=== PATIENT | male | born 1970 | race Caucasian/White ===

== ENCOUNTER 2020-03-08 04:06 | Observation (INO) | payer OTHER ==
--- NOTE | 2020-03-08 05:04 | XR ---
EXAMINATION TYPE: XR finger LT DATE OF EXAM: 03/08/2020 COMPARISON: NONE HISTORY: Swelling TECHNIQUE: 3 views FINDINGS: There is soft tissue swelling around the middle finger. I see no fracture nor dislocation. There is 1 mm bony density that could relate to some arthritic change at the PIP joint. IMPRESSION: Soft tissue swelling. No evidence of radiopaque foreign body.
--- NOTE | 2020-03-08 05:07 | ED ---
General Adult HPI - General Chief complaint: Skin/Abscess/Foreign Body Stated complaint: Finger Infection Time Seen by Provider: 03/08/20 04:44 Source: patient Mode of arrival: ambulatory Limitations: no limitations - History of Present Illness Initial comments: Anthony is a generally healthy 49-year-old male who presents the ER today for evaluation of left middle finger injury and infection. Patient reports that sometime last week and probably around the he smashed the finger. He states it was doing well for a while after that on Saturday the it became swollen and he noted some purulent discharge. Patient reports that over the past 4 days is progressively worsen with worsening swelling radiating all the way down the fingernail spreading to neighboring fingers and pain which limits his ability to move the finger at all. He states he hasn't been able to sleep for 2 days secondary to the pain. He denies any fevers chills nausea or vo miting. He is nondiabetic. He is a cigarette smoker. - Related Data Allergies Allergy/AdvReac Type Severity Reaction Status Date / Time No Known Allergies Allergy Verified 03/08/20 04:14 Review of Systems ROS Statement: Those systems with pertinent positive or pertinent negative responses have been documented in the HPI. ROS Other: All systems not noted in ROS Statement are negative. Past Medical History Past Medical History: No Reported History History of Any Multi-Drug Resistant Organisms: None Reported Past Surgical History: No Surgical Hx Reported Past Psychological History: No Psychological Hx Reported Smoking Status: Current every day smoker Past Alcohol Use History: None Reported Past Drug Use History: None Reported General Exam - General Exam Comments Initial Comments: Physical Exam GENERAL: Patient is well-developed and well-nourished. Patient is nontoxic and well-hydrated and is in no distress. HENT: Normocephalic, Atraumatic. EYES: PERRL, EOMI PULMONARY: Unlabored respirations. CARDIOVASCULAR: RRR Warm and well perfused extremities ABDOMEN: Non-distended SKIN: Open wound to pad of left middle finger, no drainage : Deferred NEUROLOGIC: Alert and oriented Normal speech Normal gait MUSCULOSKELETAL: Decreased ROM of left middle finger secondary to swelling, fluctuance noted on the flexor surface from the DIP to the PIP, significant edema of the finger PSYCHIATRIC: No SI/HI Limitations: no limitations Course Vital Signs 03/08/20 04:12 Temperature 97 F L Pulse Rate 65 Respiratory 18 Rate Blood Pressure 143/78 O2 Sat by Pulse 100 Oximetry Medical Decision Making - Medical Decision Making The patient was seen and evaluated, history was obtained from the patient Given the patient's signs of infection a septic workup was initiated Concern for finger abscess therefore vancomycin and Rocephin were ordered Labs with leukocytosis no other significant abnormalities noted X-ray with no signs of underlying fracture free air or foreign body Patient care was discussed with Dr. Louis who accepts admission for possible wash out - Lab Data Result diagrams: 03/08/20 05:37 03/08/20 05:37 Lab Results 03/08/20 03/08/20 03/08/20 Range/Units 05:37 05:37 05:37 WBC 11.3 H (3.8-10.6) k/uL RBC 4.57 (4.30-5.90) m/uL Hgb 13.3 (13.0-17.5) gm/dL Hct 41.8 (39.0-53.0) % MCV 91.4 (80.0-100.0) fL MCH 29.2 (25.0-35.0) pg MCHC 31.9 (31.0-37.0) g/dL RDW 13.5 (11.5-15.5) % Plt Count 293 (150-450) k/uL Neutrophils % 74 % Lymphocytes % 14 % Monocytes % 5 % Eosinophils % 6 % Basophils % 1 % Neutrophils # 8.4 H (1.3-7.7) k/uL Lymphocytes # 1.6 (1.0-4.8) k/uL Monocytes # 0.5 (0-1.0) k/uL Eosinophils # 0.7 (0-0.7) k/uL Basophils # 0.1 (0-0.2) k/uL Sodium 134 L (137-145) mmol/L Potassium 4.2 (3.5-5.1) mmol/L Chloride 101 (98-107) mmol/L Carbon Dioxide 27 (22-30) mmol/L Anion Gap 6 mmol/L BUN 13 (9-20) mg/dL Creatinine 0.93 (0.66-1.25) mg/dL Est GFR (CKD-EPI)AfAm >90 (>60 ml/min/1.73 sqM) Est GFR (CKD-EPI)NonAf >90 (>60 ml/min/1.73 sqM) Glucose 124 H (74-99) mg/dL Plasma Lactic Acid Virgil 0.7 (0.7-2.0) mmol/L Calcium 9.2 (8.4-10.2) mg/dL Total Bilirubin 0.3 (0.2-1.3) mg/dL AST 22 (17-59) U/L ALT 16 (4-49) U/L Alkaline Phosphatase 97 (38-126) U/L Total Protein 6.5 (6.3-8.2) g/dL Albumin 4.1 (3.5-5.0) g/dL Disposition Clinical Impression: Abscess of finger of left hand Disposition: ADMITTED IP TO THIS HOSP Condition: Stable Is patient prescribed a controlled substance at d/c from ED?: No Referrals: None,Stated [Primary Care Provider] - 1-2 days
[2020-03-08] MEDS ORDERED: VANCOMYCIN IV PER PHARMACY 1 EACH MISC MISCELLANE PRN (05:14)
[2020-03-08] MEDS ORDERED: HYDROmorphone 1 MG/ML 1 ML SYRINGE IVP STA ×2 (05:15→06:47)
[2020-03-08] MEDS ORDERED: VANCOMYCIN 1,500 MG in SODIUM CHLORIDE 0.9% 250 ML IVPB STA (05:17)
[2020-03-08 05:47] LABS: Basophils # (A) 0.1 k/uL (0-0.2); Basophils % (A) 1 %; Eosinophils # (A) 0.7 k/uL (0-0.7); Eosinophils % (A) 6 %; HCT 41.8 % (39.0-53.0); HGB 13.3 gm/dL (13.0-17.5); Lymphocytes # (A) 1.6 k/uL (1.0-4.8); Lymphocytes % (A) 14 %; MCH 29.2 pg (25.0-35.0); MCHC 31.9 g/dL (31.0-37.0); MCV 91.4 fL (80.0-100.0); Mean Platelet Volume 7.2; Monocytes # (A) 0.5 k/uL (0-1.0); Monocytes % (A) 5 %; Neutrophils # (A) 8.4 k/uL (1.3-7.7); Neutrophils % (A) 74 %; Platelet Count 293 k/uL (150-450); RBC 4.57 m/uL (4.30-5.90); RDW 13.5 % (11.5-15.5); WBC 11.3 k/uL (3.8-10.6)
[2020-03-08 05:56] LABS: ALT 16 U/L (4-49); AST 22 U/L (17-59); African American GFR (CKD) >90 (>60 ml/min/1.73 sqM); Albumin 4.1 g/dL (3.5-5.0); Alkaline Phosphatase 97 U/L (38-126); Anion Gap 6 mmol/L; Blood Urea Nitrogen 13 mg/dL (9-20); Calcium 9.2 mg/dL (8.4-10.2); Carbon Dioxide 27 mmol/L (22-30); Chloride 101 mmol/L (98-107); Glucose 124 mg/dL (74-99); Non-African American GFR(CKD) >90 (>60 ml/min/1.73 sqM); Potassium 4.2 mmol/L (3.5-5.1); Sodium 134 mmol/L (137-145); Total Bilirubin 0.3 mg/dL (0.2-1.3); Total Protein 6.5 g/dL (6.3-8.2)
[2020-03-08] MEDS: SODIUM CHLORIDE 0.9% 1,000 ML IV SCH ×3 (05:56→19:18)
[2020-03-08] MEDS: SODIUM CHLORIDE 0.9% 500 ML 500 ML IV SCH ×2 (05:56→06:45)
[2020-03-08 06:13] LABS: INR 0.9 (<1.2); Partial Thromboplastin Time 25.7 sec (22.0-30.0); Prothrombin Time 9.6 sec (9.0-12.0)
[2020-03-08] MEDS ORDERED: NALOXONE 0.4 MG/ML 1 ML VIAL IV PRN (07:18)
[2020-03-08] MEDS: NICOTINE 14MG/24HR PATCH TRANSDERM SCH (08:11)
[2020-03-08] MEDS: HYDROmorphone 1 MG/ML 1 ML SYRINGE IVP PRN ×2 (09:01→11:51)
--- NOTE | 2020-03-08 11:41 | P.HPOR ---
History of Present Illness H&P Date: 03/08/20 This patient is a 49-year-old male with a current every day cigarette smoker that presented to [facility] emergency department last night with complaints of left middle finger pain and swelling. The patient states last weekend, sometime around 02/28/20, he placed a screw into the left middle finger by mistake. He states he removed the screw from his finger at home, and irrigated the wound at home. He states he was not evaluated for his injury. He has not been on oral antibiotics. He states within the past few days, the left middle finger began swelling. He also noticed erythema and drainage from the wound. He states the pain increased over the past 2 days, therefore he presented to the emergency department for evaluation. Patient was placed on Rocephin and Vancomycin. At the time exam, patient states he feels well. He denies chest pain, shortness breath, nausea, vomiting, fevers, chills, feelings of generalized malaise. He is tolerating his diet well. He has no additional complaints today. Vital signs stable. Past Medical History Past Medical History: No Reported History History of Any Multi-Drug Resistant Organisms: None Reported Past Surgical History: No Surgical Hx Reported Past Psychological History: No Psychological Hx Reported Smoking Status: Current every day smoker Past Alcohol Use History: None Reported Past Drug Use History: None Reported Medications and Allergies Home Medications Medication Instructions Recorded Confirmed Type No Known Home Medications 03/08/20 03/08/20 History Allergies Allergy/AdvReac Type Severity Reaction Status Date / Time No Known Allergies Allergy Verified 03/08/20 06:39 Physical Examination On examination, the patient is sitting up in bed in no apparent distress. He is alert and oriented 3. A focused examination of the left hand was conducted. On inspection of the left middle finger, there is diffuse swelling and erythema of the finger. There is a small wound at the distal aspect of the volar left middle finger. There is no active drainage at this time. There is diffuse tenderness on palpation of the distal finger. There is no pain with passive range of motion of the finger. Patient is able to actively, fully extend and flex the finger without issue or significant pain. The left middle finger is warm and well-perfused with brisk capillary refill. Sensation is intact to light touch of both sides of the finger. Results Left hand x-ray 03/08/2020: No acute fractures. No obvious foreign bodies. - Labs Labs: Abnormal Lab Results - Last 24 Hours (Table) 03/08/20 03/08/20 Range/Units 05:37 05:37 WBC 11.3 H (3.8-10.6) k/uL Neutrophils # 8.4 H (1.3-7.7) k/uL Sodium 134 L (137-145) mmol/L Glucose 124 H (74-99) mg/dL H & H 03/08/20 Range/Units 05:37 Hgb 13.3 (13.0-17.5) gm/dL Hct 41.8 (39.0-53.0) % Coagulation 03/08/20 Range/Units 05:37 INR 0.9 (<1.2) Result Diagrams: 03/08/20 05:37 03/08/20 05:37 Assessment and Plan Assessment: Left middle finger infection Plan: Clinical and imaging findings were discussed with the patient. The patient was discussed with Dr. Santos Louis. No plans for surgical intervention today. We will monitor patient's clinical response to IV antibiotics. Also recommended warm water soaks of the left middle finger TID. He may perform gentle, active ROM of the finger as tolerated. We will re-assess patient in the morning tomorrow. Patient will be made NPO at midnight. Patient discussed with Dr. Louis.
[2020-03-08] MEDS: VANCOMYCIN 1,500 MG in SODIUM CHLORIDE 0.9% 250 ML IVPB SCH ×2 (13:22→22:01)
--- NOTE | 2020-03-08 16:33 | P.HPIM ---
History of Present Illness H&P Date: 03/08/20 Chief Complaint: Finger pain and swelling This is a 49-year-old male with no significant past medical history who presented to the ER with worsening swelling and pain of the left middle finger. Patient said last week he had a screw into the left middle finger by mistake rigo t he removed at home and irrigated the wound. Since then his finger is being going progressively worse. He did not seek medical attention at that time. He did not take any antibiotic. Patient said that there was some drainage out of the wound and currently so swollen and painful. He was evaluated in the ER and was given IV vancomycin and ceftriaxone. He was admitted under orthopedic for possible I&D. I was asked to see him for medical management. Patient denies any other medical history. No history of diabetes. Review of Systems Review of system: 14 points review of systems were obtained and were negative except to what were mentioned in the HPI. Past Medical History Past Medical History: No Reported History History of Any Multi-Drug Resistant Organisms: None Reported Past Surgical History: No Surgical Hx Reported Past Psychological History: No Psychological Hx Reported Smoking Status: Current every day smoker Past Alcohol Use History: None Reported Past Drug Use History: None Reported Medications and Allergies Home Medications Medication Instructions Recorded Confirmed Type No Known Home Medications 03/08/20 03/08/20 History Allergies Allergy/AdvReac Type Severity Reaction Status Date / Time No Known Allergies Allergy Verified 03/08/20 06:39 Physical Exam Vitals: Vital Signs Temp Pulse Pulse Resp BP BP Pulse Ox 03/08/20 13:25 98.4 F 64 14 163/93 98 03/08/20 07:42 98.6 F 65 16 160/84 100 03/08/20 07:38 98.9 F 70 16 169/94 95 03/08/20 07:08 60 19 146/94 100 03/08/20 06:10 62 18 147/95 100 03/08/20 05:15 64 19 163/98 100 03/08/20 04:12 97 F L 65 18 143/78 100 Intake and Output 03/08/20 03/08/20 03/08/20 06:59 14:59 22:59 Other: Voiding Method Toilet # Voids 2 Weight 81.647 kg 81.647 kg General: The patient is awake and alert, in no distress Eye: there is normal conjunctiva bilaterally. Neck: The neck is supple, there is no JVD. Cardiovascular: Normal S1-S2, no S3-S4, no murmurs. Respiratory: Lungs clear to auscultation bilaterally Gastrointestinal: Abdomen is soft, nontender Musculoskeletal: There is no pedal edema. Left middle finger is significantly swollen and tender. There is limitation Range of motion of the DIP and PIP secondary to swelling and pain. Neurological:. Speech is normal. Skin: Skin is warm and dry Results CBC & Chem 7: 03/08/20 05:37 03/08/20 05:37 Labs: Abnormal Lab Results - Last 24 Hours (Table) 03/08/20 03/08/20 Range/Units 05:37 05:37 WBC 11.3 H (3.8-10.6) k/uL Neutrophils # 8.4 H (1.3-7.7) k/uL Sodium 134 L (137-145) mmol/L Glucose 124 H (74-99) mg/dL Thrombosis Risk Factor Assmnt - Choose All That Apply Each Factor Represents 1 point: Age 41-60 years Thrombosis Risk Factor Assessment Total Risk Factor Score: 1 Thrombosis Risk Factor Assessment Level: Low Risk Assessment and Plan Assessment: 1. Left middle finger swelling and cellulitis with possible small abscess formation, seen and evaluated by orthopedic. Currently on IV vancomycin. We'll follow clinical course. Consider I&D in the morning. Patient is up-to-date on his tetanus vaccine. 2. Tobacco abuse: Counseled extensively to quit. Patient declines nicotine patch at this time. 3. Leukocytosis, mild, secondary to underlying infection. Repeat CBC in the morning.
[2020-03-08] MEDS ORDERED: VANCOMYCIN 1,500 MG in SODIUM CHLORIDE 0.9% 250 ML IVPB SCH (18:00)
[2020-03-09] MEDS: ACETAMINOPHEN TAB 325 MG TAB PO PRN ×3 (03:00→19:54)
[2020-03-09] MEDS ORDERED: VANCOMYCIN TROUGH DUE 1 EACH MISC MISCELLANE ONE (05:00)
[2020-03-09 05:26] LABS: Basophils % (A) 0 %; Eosinophils # (A) 0.3 k/uL (0-0.7); Eosinophils % (A) 4 %; HCT 41.5 % (39.0-53.0); Lymphocytes # (A) 1.3 k/uL (1.0-4.8); Lymphocytes % (A) 19 %; MCH 28.7 pg (25.0-35.0); MCHC 31.3 g/dL (31.0-37.0); MCV 91.8 fL (80.0-100.0); Mean Platelet Volume 7.1; Monocytes # (A) 0.4 k/uL (0-1.0); Monocytes % (A) 5 %; Neutrophils # (A) 5.1 k/uL (1.3-7.7); Neutrophils % (A) 71 %; Platelet Count 257 k/uL (150-450); RBC 4.52 m/uL (4.30-5.90); RDW 13.8 % (11.5-15.5); WBC 7.2 k/uL (3.8-10.6)
[2020-03-09 05:36] LABS: African American GFR (CKD) >90 (>60 ml/min/1.73 sqM); Anion Gap 5 mmol/L; Blood Urea Nitrogen 11 mg/dL (9-20); Carbon Dioxide 25 mmol/L (22-30); Chloride 104 mmol/L (98-107); Glucose 102 mg/dL (74-99); Non-African American GFR(CKD) >90 (>60 ml/min/1.73 sqM); Potassium 4.1 mmol/L (3.5-5.1); Sodium 134 mmol/L (137-145)
[2020-03-09] MEDS: VANCOMYCIN 1,500 MG in SODIUM CHLORIDE 0.9% 250 ML IVPB SCH ×3 (05:41→21:20)
[2020-03-09] MEDS: SODIUM CHLORIDE 0.9% 1,000 ML IV SCH (05:42)
[2020-03-09] MEDS ORDERED: LIDOCAINE 2% INJ 20 MG/ML (20 ML MDV) SQ STA (08:27)
[2020-03-09] MEDS: NICOTINE 14MG/24HR PATCH TRANSDERM SCH (09:25)
--- NOTE | 2020-03-09 10:01 | P.PN ---
Subjective Progress Note Date: 03/09/20 Principal diagnosis: Left middle finger cellulitis Patient is feeling about the same compared to yesterday. Finger swelling has not improved. Objective - Vital Signs Vital signs: Vital Signs Temp 97.8 F 03/09/20 09:00 Pulse 55 L 03/09/20 09:00 Resp 16 03/09/20 09:00 BP 130/80 03/09/20 09:00 Pulse Ox 96 03/09/20 09:00 Intake & Output 03/08/20 03/09/20 03/09/20 18:59 06:59 18:59 Intake Total 236 250 Balance 236 250 Weight 81.647 kg Intake: Intake, IV Titration 250 Amount Vancomycin 1,500 mg In 250 Sodium Chloride 0.9% 250 ml @ 125 mls/hr IVPB Q8H [facility] Rx#:[id number] Oral 236 Other: Voiding Method Toilet Toilet # Voids 2 - Exam General: The patient is awake and alert, in no distress Eye: there is normal conjunctiva bilaterally. Neck: The neck is supple, there is no JVD. Cardiovascular: Normal S1-S2, no S3-S4, no murmurs. Respiratory: Lungs clear to auscultation bilaterally Gastrointestinal: Abdomen is soft, nontender Musculoskeletal: There is no pedal edema. Left middle finger is still swollen and tender with no significant improvement since yesterday Neurological:. Speech is normal. Skin: Skin is warm and dry - Labs CBC & Chem 7: 03/09/20 05:06 03/09/20 05:06 Labs: Abnormal Lab Results - Last 24 Hours (Table) 03/09/20 Range/Units 05:06 Sodium 134 L (137-145) mmol/L Glucose 102 H (74-99) mg/dL Microbiology - Last 24 Hours (Table) 03/08/20 05:37 Blood Culture - Preliminary Blood No Growth after 24 hours Assessment and Plan Assessment: 1. Left middle finger swelling and cellulitis with possible small abscess formation, seen and evaluated by orthopedic. Plan for bedside I&D this morning. Currently on IV vancomycin. We'll follow clinical course. Patient is up-to-date on his tetanus vaccine. 2. Tobacco abuse: Counseled extensively to quit. Patient declines nicotine patch at this time. 3. Leukocytosis, mild, secondary to underlying infection. Resolved Continue IV antibiotic for another day. We will continue to follow clinical course. Anticipate discharge home tomorrow.
[2020-03-09] MEDS ORDERED: HYDROcodone/APAP 7.5-325MG 1 EACH TAB PO PRN (10:53)
[2020-03-09] MEDS ORDERED: IBUPROFEN 800 MG TAB PO PRN (10:53)
--- NOTE | 2020-03-09 10:53 | P.PN ---
Subjective Progress Note Date: 03/09/20 This is a 49-year-old male who is admitted for a left middle finger infection. Patient is seen and evaluated at bedside with Dr. Santos Louis. Patient states that his swelling has gone down a little bit, but there is still pain in the left middle finger today. Patient denies any new complaints today. Objective - Vital Signs Vital signs: Vital Signs Temp 97.8 F 03/09/20 09:00 Pulse 55 L 03/09/20 09:00 Resp 16 03/09/20 09:00 BP 130/80 03/09/20 09:00 Pulse Ox 96 03/09/20 09:00 Intake & Output 03/08/20 03/09/20 03/09/20 18:59 06:59 18:59 Intake Total 236 250 Balance 236 250 Weight 81.647 kg Intake: Intake, IV Titration 250 Amount Vancomycin 1,500 mg In 250 Sodium Chloride 0.9% 250 ml @ 125 mls/hr IVPB Q8H [facility] Rx#:[id number] Oral 236 Other: Voiding Method Toilet Toilet # Voids 2 - Exam On exam there is swelling and erythema to the left middle finger. There is an abscess to the distal palmar aspect of the left middle finger. There is no active drainage. There is tenderness to palpation of the left middle finger. The left upper extremity is warm and well perfused. - Labs CBC & Chem 7: 03/09/20 05:06 03/09/20 05:06 Labs: Abnormal Lab Results - Last 24 Hours (Table) 03/09/20 Range/Units 05:06 Sodium 134 L (137-145) mmol/L Glucose 102 H (74-99) mg/dL Microbiology - Last 24 Hours (Table) 03/08/20 05:37 Blood Culture - Preliminary Blood No Growth after 24 hours Assessment and Plan (1) Abscess of finger of left hand Current Visit: Yes Status: Acute Code(s): L02.512 - CUTANEOUS ABSCESS OF LEFT HAND SNOMED Code(s): 51090701113151283 Plan: Procedure: Bedside Incision and drainage The skin overlying the abscess was prepped with Betadine, and a digital block is performed with 2% lidocaine without epinephrine. A #11 scalpel was then used to incise the abscess. Some purulent material was then extracted from the lesion. Wound culture obtained. Gauze dressing placed on top, The patient tolerated the procedure well. Recommend continuation of IV antibiotics and warm compresses. Appreciate input from medicine. Will continue to follow the patient closely.
[2020-03-09] MEDS: HYDROmorphone 1 MG/ML 1 ML SYRINGE IVP PRN (11:08)
[2020-03-09] MEDS: HYDROcodone/APAP 7.5-325MG 1 EACH TAB PO PRN (17:07)
[2020-03-10] MEDS: HYDROmorphone 1 MG/ML 1 ML SYRINGE IVP PRN (02:55)
[2020-03-10] MEDS: VANCOMYCIN 1,500 MG in SODIUM CHLORIDE 0.9% 250 ML IVPB SCH (05:56)
[2020-03-10 07:13] LABS: Basophils # (A) 0.1 k/uL (0-0.2); Basophils % (A) 1 %; Eosinophils # (A) 0.4 k/uL (0-0.7); Eosinophils % (A) 5 %; HCT 40.9 % (39.0-53.0); HGB 12.9 gm/dL (13.0-17.5); Lymphocytes # (A) 1.6 k/uL (1.0-4.8); Lymphocytes % (A) 23 %; MCH 28.9 pg (25.0-35.0); MCHC 31.6 g/dL (31.0-37.0); MCV 91.4 fL (80.0-100.0); Mean Platelet Volume 7.2; Monocytes # (A) 0.4 k/uL (0-1.0); Monocytes % (A) 5 %; Neutrophils # (A) 4.7 k/uL (1.3-7.7); Neutrophils % (A) 65 %; Platelet Count 260 k/uL (150-450); RBC 4.47 m/uL (4.30-5.90); RDW 13.7 % (11.5-15.5); WBC 7.2 k/uL (3.8-10.6)
[2020-03-10 07:26] LABS: African American GFR (CKD) >90 (>60 ml/min/1.73 sqM); Anion Gap 5 mmol/L; Blood Urea Nitrogen 12 mg/dL (9-20); Calcium 8.6 mg/dL (8.4-10.2); Carbon Dioxide 26 mmol/L (22-30); Chloride 103 mmol/L (98-107); Glucose 98 mg/dL (74-99); Non-African American GFR(CKD) >90 (>60 ml/min/1.73 sqM); Potassium 4.2 mmol/L (3.5-5.1); Sodium 134 mmol/L (137-145)
[2020-03-10] MEDS: HYDROcodone/APAP 7.5-325MG 1 EACH TAB PO PRN (08:10)
[2020-03-10 09:34] VITALS: BP 148/79; PULSE 65; RESP 18; TEMP 98.7
[2020-03-10] MEDS: NICOTINE 14MG/24HR PATCH TRANSDERM SCH (10:17)
--- NOTE | 2020-03-10 10:50 | P.PN ---
Subjective Progress Note Date: 03/10/20 Principal diagnosis: Left middle finger cellulitis Patient is doing well today. Pain has improved. Left middle finger is wrapped in clean/dry dressing. Objective - Vital Signs Vital signs: Vital Signs Temp 98.7 F 03/10/20 09:00 Pulse 65 03/10/20 09:00 Resp 18 03/10/20 09:00 BP 148/79 03/10/20 09:00 Pulse Ox 96 03/10/20 09:00 Intake & Output 03/09/20 03/10/20 03/10/20 18:59 06:59 18:59 Intake Total 236 250 360 Balance 236 250 360 Intake: Intake, IV Titration 250 Amount Vancomycin 1,500 mg In 250 Sodium Chloride 0.9% 250 ml @ 125 mls/hr IVPB Q8H [facility] Rx#:[id number] Oral 236 360 Other: Voiding Method Toilet # Voids 1 2 - Exam General: The patient is awake and alert, in no distress Eye: there is normal conjunctiva bilaterally. Neck: The neck is supple, there is no JVD. Cardiovascular: Normal S1-S2, no S3-S4, no murmurs. Respiratory: Lungs clear to auscultation bilaterally Gastrointestinal: Abdomen is soft, nontender Musculoskeletal: There is no pedal edema. Neurological:. Speech is normal. Skin: Skin is warm and dry - Labs CBC & Chem 7: 03/10/20 07:04 03/10/20 07:04 Labs: Abnormal Lab Results - Last 24 Hours (Table) 03/10/20 03/10/20 Range/Units 07:04 07:04 Hgb 12.9 L (13.0-17.5) gm/dL Sodium 134 L (137-145) mmol/L Microbiology - Last 24 Hours (Table) 03/09/20 10:10 Gram Stain - Preliminary Finger - Left Third Wound Culture - Preliminary Presumptive MRSA 03/08/20 05:37 Blood Culture - Preliminary Blood No Growth after 48 hours 03/09/20 10:10 Anaerobic Culture - Preliminary Finger - Left Third Assessment and Plan Assessment: 1. Left middle finger swelling and cellulitis with possible small abscess formation, seen and evaluated by orthopedic. Status post bedside I&D. Started on IV antibiotic with IV vancomycin and would finish antibiotic course with Bactrim as prescribed by orthopedic Patient is up-to-date on his tetanus vaccine. 2. Tobacco abuse: Counseled extensively to quit. Patient declines nicotine pa tch at this time. 3. Leukocytosis, mild, secondary to underlying infection. Resolved patient is medically cleared for discharge. follow-up as directed
--- NOTE | 2020-03-10 10:51 | P.DS ---
Providers Date of admission: 03/08/20 07:18 Expected date of discharge: 03/10/20 Attending physician: Santos Louis Consults: 03/08/20 15:16 Consult Physician Routine Consulting Provider: Arabella Hawthorne Consult Reason/Comments: medical management Do you want consulting provider notified?: Yes Primary care physician: Stated None - Discharge Diagnosis(es) (1) Abscess of finger of left hand Current Visit: Yes Status: Acute Hospital Course: This is a 49 year-old male who is admitted for left middle finger infection. Patient has been on IV antibiotics and underwent bedside incision and drainage on 03/09/2020. Patient's symptoms are improving. Labs and vital signs are stable on day of discharge. Cultures show presumptive MRSA. On exam the left middle finger is swollen. Mild drainage present. Mild erythema. There is no tenderness to palpation over the left hand. Sensation intact. Capillary refill is normal at <2 seconds. Neurovascular status and circulatory status are intact. Patient is in good condition for discharge home. Patient Condition at Discharge: Stable Plan - Discharge Summary New Discharge Prescriptions: New HYDROcodone/APAP 7.5-325MG [[place] 7.5-325] 1 - 2 tab PO Q6H PRN #32 tab PRN Reason: Pain Sennosides [Senokot] 2 tab PO DAILY PRN #60 tablet PRN Reason: Constipation Sulfamethox-Tmp 800-160Mg [Bactrim DS 800-160 mg] 1 tab PO Q12HR #20 tab Discharge Medication List HYDROcodone/APAP 7.5-325MG [[place] 7.5-325] 1 - 2 tab PO Q6H PRN #32 tab 03/10/20 [Rx] Sennosides [Senokot] 2 tab PO DAILY PRN #60 tablet 03/10/20 [Rx] Sulfamethox-Tmp 800-160Mg [Bactrim DS 800-160 mg] 1 tab PO Q12HR #20 tab 03/10/20 [Rx] Follow up Appointment(s)/Referral(s): None,Stated [Primary Care Provider] - 1-2 days Santos Louis DO [Doctor of Osteopathic Medicine] - 1 Week Activity/Diet/Wound Care/Special Instructions: Daily dressing changes. Keep bandage clean and dry. Elevate for swelling. Continue warm compresses. Please finish entire course of antibiotics. Please take medications as prescribed. Please follow up with [facility] in one week and call with any questions or concerns, . Discharge Disposition: HOME SELF-CARE
== END 2020-03-10 11:45 | disposition home or self-care (01) ==
LOC: EC 04:06 → 1SOBS 07:18
PROVIDERS: ADMIT Orthopaedic Surgery; ATTEND Orthopaedic Surgery
DX: L03.012 Cellulitis of left finger (principal); L02.512 Cutaneous abscess of left hand; F17.210 Nicotine dependence, cigarettes, uncomplicated
CPT/HCPCS: 96361 ×2; 96366 ×4; 96376 ×4; 96365; 96367; 96375; 99284; 36415; 80053; 80048 ×2; 83605; 85025 ×3; 80202; 85610; 85730; 87040; 87070; 87205; 87075; 87077; 87186; 73140; G0378 ×3; J2001; J3370 ×3; J0696; J1170 ×3